=== PATIENT | female | born 1990 | race African-American/Black ===

== ENCOUNTER 2020-02-25 11:15 | Inpatient (IN) | payer OTHER ==
--- NOTE | 2020-02-25 12:05 | PN ---
Progress Note (short form) - Note Progress Note: 29yo @ 38w6d, here for NST,Had 10x10 accelerations at M , EDC-03/04/20 2 previous vaginal deliveries. on arrival BP- 141/87, 142/83 Preeclampsia blood work, BPP labs wnl UA-LE 2+ UC/S NITRITE NEGATIVE US- ANGELINA-10.3,CX-3.2 [id number] A/P- IUP@ 38w6d, Gestational hypertension Admit to labor and delivery Induction of labor, Informed and shared decision made
[2020-02-25 12:13] LABS: BASO % 1.1 % (0-2.0); EOS % 1.8 % (0-4.5); HEMATOCRIT 28.1 % (32.4-45.2); HEMOGLOBIN 9.6 GM/dL (10.7-15.3); LYMPH % 16.8 % (8-40); MEAN PLT VOLUME 9.2 fl (7.5-11.1); MONO % 11.5 % (3.8-10.2); NEUT % 68.8 % (42.8-82.8); PLATELET COUNT 243 K/MM3 (134-434); RDW 13.7 % (11.6-15.6); WHITE BLOOD COUNT 9.3 K/mm3 (4.0-10.0)
[2020-02-25 12:23] LABS: EPI CELLS >36 /uL (0-25.1); HYALINE CASTS 3 /uL (0-3.1); PH,URINE 6.5 (5.0-8.0); URINE APPEARANCE CLOUDY; URINE BACTERIA 1924 /uL (0-1359); URINE BILIRUBIN NEGATIVE (NEGATIVE); URINE COLOR YELLOW; URINE GLUCOSE (UA) NEGATIVE (NEGATIVE); URINE KETONE NEGATIVE (NEGATIVE); URINE LEUK ESTERASE 2+ (NEGATIVE); URINE NITRITE NEGATIVE (NEGATIVE); URINE PROTEIN NEGATIVE (NEGATIVE); URINE RBC 21 /uL (0-23.9); URINE WBC 134 /uL (0-25.8)
[2020-02-25 12:41] LABS: ALBUMIN 2.6 g/dl (3.4-5.0); BILIRUBIN,TOTAL 0.3 mg/dL (0.2-1); CREATININE 0.6 mg/dL (0.55-1.3); POTASSIUM 3.5 mmol/L (3.5-5.1); TOT PROT 6.1 g/dl (6.4-8.2); URIC ACID 6.4 mg/dL (2.6-7.2)
[2020-02-25 14:04] VITALS: BMI 31.8
--- NOTE | 2020-02-25 14:11 | HP ---
Past Medical History - Primary Care Physician PCP:: Vikki Stiles - Admission History Source: Patient - Past Medical History ...: 2 ...Para: 1 ...Term: 1 ...: 0 ...Spon : 0 ...Induced : 0 ...Living Children: 1 ...Multiple Gestation: 0 ... Weeks Gestation by Dates: 38.6 ...EDC by Dates: 03/04/20 - Past Surgical History Past Surgical History: Yes: None Hx Myomectomy: No Hx Transabdominal Cerclage: No - Smoking History Smoking history: Never smoked Have you smoked in the past 12 months: No - Alcohol/Substance Use Hx Alcohol Use: No Home Medications - Allergies Allergies/Adverse Reactions: Allergies Allergy/AdvReac Type Severity Reaction Status Date / Time No Known Allergies Allergy Verified 02/25/20 12:05 - Home Medications Home Medications: Ambulatory Orders Vitamins (Sjr) - 1 tab PO DAILY 02/25/20 Review of Systems - Review of Systems Constitutional: reports: No Symptoms Cardiovascular: reports: No Symptoms Respiratory: reports: No Symptoms Gastrointestinal: reports: No Symptoms Genitourinary: reports: No Symptoms Breasts: reports: No Symptoms Reported Physical Exam - Maternity Vital Signs: Vital Signs Temperature 98.2 F 02/25/20 12:45 Pulse Rate 82 02/25/20 12:45 Respiratory Rate 18 02/25/20 12:45 Blood Pressure 133/81 02/25/20 12:45 O2 Sat by Pulse Oximetry (%) Constitutional: Yes: Well Nourished Cardiovascular: Yes: WNL Lungs: Clear to auscultation - Abdominal Exam/OB Fundal Height: 38 Number of Fetuses: Single Presentation: Vertex Contractions: No Monitor Mode: External Heart Rate (range): 130 Category: I Accelerations: Uniform Decelerations: None - Vaginal Exam/OB Vaginal Bleeding: No Amniotic Membrane Status: Intact Presentation: Vertex/Position Station: -3 - Physical Exam Edema: No - Labs Lab Results: CBC, BMP 02/25/20 11:00 02/25/20 11:45 Hemorrhage Risk Assessment - Risk Factors Medium Risk Factors: Yes: None High Risk Factors: Yes: None Risk Score: 1 Risk Level: Medium Risk Assessment/Plan 29yo @ 38w6d, Gestational hypertension, Induction of labor Admit to labor and delivery Informed consent Labs IVLR Pain management Anticipate vaginal delivery Cervidil placed NPO when active labor, regular diet now Ampicillin for GBS when contractions regular
[2020-02-25 14:12] LABS: INR 0.97 (0.83-1.09); PROTHROMBIN TIME (PATIENT) 11.5 SEC (9.7-13.0)
[2020-02-25] MEDS ORDERED: DINOPROSTONE 10 MG VAGINAL SUPPOSITORY VG ONE (14:20)
[2020-02-25] MEDS ORDERED: AMPICILLIN - 2 GM in SODIUM CHLORIDE 100 ML IVPB ONE (14:24)
[2020-02-25] MEDS ORDERED: LACTATED RINGERS SOLUTION 1,000 ML/1,000 ML INFUS.BAG IV SCH (14:30)
[2020-02-25] MEDS ORDERED: LACTATED RINGERS SOLUTION 1,000 ML/500 ML INFUS.BAG IV SCH (14:30)
[2020-02-25] MEDS: LACTATED RINGERS SOLUTION 1,000 ML/1,000 ML INFUS.BAG IV SCH (16:00)
--- NOTE | 2020-02-25 23:02 | PD.OB.PROG ---
Past Medical History - Primary Care Physician PCP:: Radha Perdomo Documenting Provider Type: Laborist - Admission Chief Complaint: For induction. Attending rdequested cervidil change History of Present Illness: Uneventful gestation. History Source: Caregiver Limitations to Obtaining History: No Limitations - Nursing Documentation Maternal Triage Index: Maternal Triage Index ( Priority 5, Requesting MFTI) Maternal Triage Index ( Priority 5, Requesting MFTI) Maternal Triage Index ( Priority 5, Requesting MFTI) Hemorrhage Risk Assessment: Risk Level Low Risk High Level Risk Factors for None Hemorrhage Medium Level Risk Factors for None of the above Hemorrhage Low Level Risk Factors for No previous uterine incis,[place] Pregnaancy, Hemorrhage Four (4) or less previous,No known bleeding,No history of PPH Nursing Documentation Reviewed: Yes - Past Medical History 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 Weeks Gestation by Dates: 38.6 ...EDC by Dates: 03/04/20 Heme/Onc: Denies/None Infectious Disease: Denies/None Psych: Denies/None Musculoskeletal: Denies/None Rheumatology: Denies/None ENT: Denies/None Endocrine: Denies/None Dermatology: Denies/None - Past Surgical History Past Surgical History: Yes: None - Smoking History Smoking history: Never smoked Have you smoked in the past 12 months: No - Alcohol/Substance Use Hx Alcohol Use: No Review of Systems - Review of Systems Constitutional: reports: No Symptoms Eyes: reports: No Symptoms HENT: reports: No Symptoms Neck: reports: No Symptoms Cardiovascular: reports: No Symptoms Respiratory: reports: No Symptoms Gastrointestinal: reports: No Symptoms Genitourinary: reports: No Symptoms Breasts: reports: No Symptoms Reported Musculoskeletal: reports: No Symptoms Integumentary: reports: No Symptoms Neurological: reports: No Symptoms Endocrine: reports: No Symptoms Hematology/Lymphatic: reports: No Symptoms Psychiatric: reports: No Symptoms Physical Exam - Obstetrical Vital Signs: Vital Signs Temperature 98.1 F 02/25/20 18:00 Pulse Rate 69 02/25/20 21:00 Respiratory Rate 18 02/25/20 21:00 Blood Pressure 125/71 02/25/20 21:00 O2 Sat by Pulse Oximetry (%) Constitutional: Yes: Well Nourished, No Distress, Calm Eyes: Yes: WNL, Conjunctiva Clear, EOM Intact HENT: Yes: WNL, Atraumatic, Normocephalic Neck: Yes: WNL, Supple, Trachea Midline Cardiovascular: Yes: WNL, Regular Rate and Rhythm Lungs: Clear to auscultation Breast(s): Yes: WNL - Abdominal Exam/OB Fundal Height: 38 Number of Fetuses: Single Presentation: Vertex Contractions: No Monitor Mode: External Heart Rate (range): 135 Heart Rate Location: [facility] Category: I Accelerations: Uniform - Vaginal Exam/OB Vaginal Exam Deferred: No Vaginal Bleeding: No Speculum Exam: No Dilatation (cm): 2 Effacement (%): 50 Amniotic Membrane Status: Intact Presentation: Vertex/Position Station: -1 - Physical Exam Musculoskeletal: Yes: WNL Extremities: Yes: WNL Integumentary: Yes: WNL ...Motor Strength: WNL Psychiatric: Yes: WNL - Labs Lab Results: CBC, BMP 02/25/20 11:00 02/25/20 11:45 Problem List - Problems (1) Term Code(s): Z34.90 - ENCNTR FOR SUPRVSN OF NORMAL , UNSP, UNSP TRIMESTER (2) Elective induction of labor planned Code(s): VBW9249 - Assessment/Plan Cervidil exchanged. Favorable cx. Anticipating vaginal delivery.
[2020-02-26] MEDS ORDERED: DINOPROSTONE 10 MG VAGINAL SUPPOSITORY VG ONE (00:45)
[2020-02-26] MEDS ORDERED: IBUPROFEN 600 MG TABLET (FP) PO PRN (04:29)
[2020-02-26] MEDS ORDERED: METHYLERGONOVINE MALEATE 0.2 MG/1 ML AMP IM PRN ×2 (04:29→12:51)
[2020-02-26] MEDS ORDERED: OXYTOCIN 20 UNITS in 0.9% NS 1,000 ML IV SCH (04:30)
[2020-02-26] MEDS ORDERED: ACETAMINOPHEN 1000 MG/100 ML VIAL (NON FORMULARY) IVPB PRN (04:33)
[2020-02-26] MEDS ORDERED: AMPICILLIN SODIUM 2 GM VIAL ONE (04:48)
[2020-02-26] MEDS ORDERED: SODIUM CHLORIDE 100 ML IVPB ONE (04:49)
[2020-02-26] MEDS ORDERED: BUTORPHANOL TARTRATE 2 MG/ML VIAL ONE (08:06)
[2020-02-26] MEDS ORDERED: PROMETHAZINE HCL 25 MG/1 ML VIAL ONE (08:06)
[2020-02-26] MEDS ORDERED: AMPICILLIN SODIUM 1 GM VIAL ONE (08:55)
[2020-02-26] MEDS ORDERED: AMPICILLIN - 1 GM in SODIUM CHLORIDE 100 ML IVPB SCH (09:00)
[2020-02-26] MEDS ORDERED: BUTORPHANOL TARTRATE 1 MG/ML VIAL IVPB ONE (09:15)
[2020-02-26] MEDS ORDERED: PROMETHAZINE HCL 25 MG/1 ML VIAL IVPB ONE (09:15)
--- NOTE | 2020-02-26 11:23 | PN ---
Progress Note (short form) - Note Progress Note: Patient in bed VSS. afebrile EFM - Baseline 125/min, moderate variability, accelerations, no decelerations Tocos - q 5 Pelvic - 7cm/100/-1/vertex Plan -Full term gestation in labor Anticipate vaginal delivery
[2020-02-26] MEDS ORDERED: OXYTOCIN 20 UNITS in 0.9% NS 20 UNIT/1,000 ML INFUS.BAG IV ONE ×2 (11:30→14:26)
[2020-02-26] MEDS ORDERED: LIDOCAINE HCL 1% PRESERVATIVE FREE - 30ML VIAL ONE (11:30)
[2020-02-26] MEDS: OXYTOCIN 20 UNITS in 0.9% NS 20 UNIT/1,000 ML INFUS.BAG IV SCH (12:20)
[2020-02-26] MEDS ORDERED: CARBOPROST TROMETHAMINE 250 MCG/ML AMPUL IM ONE ×2 (12:45→14:45)
[2020-02-26] MEDS ORDERED: WITCH HAZEL 50% (TUCKS) 40 PAD/JAR PAD TP PRN (12:51)
[2020-02-26] MEDS ORDERED: BENZOCAINE 20% 57 GM BOTTLE TP PRN (12:51)
[2020-02-26] MEDS ORDERED: BENZOCAINE 28 GM HEMORRHOIDAL OINTMENT TP PRN (12:51)
--- NOTE | 2020-02-26 13:02 | PN ---
Delivery - Delivery Vaginal Delivery: Spontaneous Type of Anesthesia: None Episiotomy/Laceration: None EBL (cc): 450 Delivery, Single - Stages of Labor Date of Delivery: 02/26/20 Date Placenta Delivered: 02/26/20 Placenta: Yes: Spontaneous, Normal Configuration - Condition of Position: Right, OA - 1 Minute Total Score: 7 5 Minutes Total Score: 8 - [place] Feeding Plan Initial Plan: Exclusive throughout hospitalization Benefits of Exclusively reinforced: Yes Remarks - Remarks Remarks: Compound presentation with right arm Nuchal cord X 1, divided on perineum
[2020-02-26] MEDS: FERROUS SO4 325 MG TABLET (FP) PO SCH ×2 (13:30→14:21)
[2020-02-26] MEDS: PRENATAL VITAMINS W/ FOLIC ACID TABLET (FP) PO SCH ×2 (13:30→14:21)
[2020-02-26] MEDS ORDERED: LABETALOL HCL 200 MG TABLET (FP) ONE ×2 (14:08→21:34)
[2020-02-26] MEDS ORDERED: LABETALOL HCL 200 MG TABLET (FP) PO ONE (14:45)
[2020-02-26 17:06] LABS: BASO % 0.7 % (0-2.0); EOS % 0.3 % (0-4.5); HEMATOCRIT 32.9 % (32.4-45.2); HEMOGLOBIN 10.5 GM/dL (10.7-15.3); LYMPH % 6.1 % (8-40); MCH 27.9 pg (25.7-33.7); MCHC 31.9 g/dl (32.0-36.0); MEAN CELL VOLUME 87.6 fl (80-96); MEAN PLT VOLUME 8.9 fl (7.5-11.1); MONO % 8.1 % (3.8-10.2); NEUT % 84.8 % (42.8-82.8); PLATELET COUNT 268 K/MM3 (134-434); RBC 3.75 M/mm3 (3.60-5.2); RDW 13.5 % (11.6-15.6); RETICULOCYTES 2.12 % (0.5-1.5); WHITE BLOOD COUNT 15.2 K/mm3 (4.0-10.0)
[2020-02-26 17:57] LABS: RETICULOCYTES 2.1 % (0.5-1.5)
[2020-02-26 17:58] LABS: BASO % 0.7 % (0-2.0); EOS % 0.3 % (0-4.5); HEMATOCRIT 32.2 % (32.4-45.2); HEMOGLOBIN 10.4 GM/dL (10.7-15.3); LYMPH % 5.7 % (8-40); MCH 28.1 pg (25.7-33.7); MCHC 32.2 g/dl (32.0-36.0); MEAN CELL VOLUME 87.3 fl (80-96); MEAN PLT VOLUME 8.6 fl (7.5-11.1); MONO % 9.4 % (3.8-10.2); NEUT % 83.9 % (42.8-82.8); PLATELET COUNT 265 K/MM3 (134-434); RBC 3.69 M/mm3 (3.60-5.2); RDW 13.9 % (11.6-15.6); WHITE BLOOD COUNT 16.8 K/mm3 (4.0-10.0)
[2020-02-26 18:24] LABS: ALBUMIN 2.9 g/dl (3.4-5.0); BILIRUBIN,TOTAL 0.4 mg/dL (0.2-1); BLOOD UREA NITROGEN 5.2 mg/dL (7-18); CALCIUM 9.7 mg/dL (8.5-10.1); CREATININE 0.5 mg/dL (0.55-1.3); TOT PROT 6.3 g/dl (6.4-8.2); URIC ACID 5.7 mg/dL (2.6-7.2)
[2020-02-26 19:56] LABS: EPI CELLS 5 /uL (0-25.1); HYALINE CASTS 0 /uL (0-3.1); PH,URINE 6.5 (5.0-8.0); URINE APPEARANCE CLEAR; URINE BACTERIA 43 /uL (0-1359); URINE BILIRUBIN NEGATIVE (NEGATIVE); URINE COLOR YELLOW; URINE GLUCOSE (UA) NEGATIVE (NEGATIVE); URINE KETONE TRACE (NEGATIVE); URINE LEUK ESTERASE NEGATIVE (NEGATIVE); URINE NITRITE NEGATIVE (NEGATIVE); URINE PROTEIN NEGATIVE (NEGATIVE); URINE RBC 918 /uL (0-23.9); URINE UROBILINOGEN 0.2 mg/dL (0.2-1.0); URINE WBC 7 /uL (0-25.8)
[2020-02-26] MEDS: LABETALOL HCL 200 MG TABLET (FP) PO SCH (21:35)
[2020-02-26] MEDS ORDERED: ACETAMINOPHEN 325 MG TABLET (FP) ONE (21:38)
[2020-02-26] MEDS ORDERED: IBUPROFEN 600 MG TABLET (FP) PO ONE (21:38)
[2020-02-26] MEDS: IBUPROFEN 600 MG TABLET (FP) PO PRN (21:47)
[2020-02-26] MEDS: ACETAMINOPHEN 325 MG TABLET (FP) PO PRN (21:48)
[2020-02-27] MEDS: LACTATED RINGERS SOLUTION 1,000 ML/1,000 ML INFUS.BAG IV SCH ×2 (01:02→19:23)
[2020-02-27] MEDS: AMPICILLIN - 1 GM in SODIUM CHLORIDE 100 ML IVPB SCH ×2 (01:03→01:04)
[2020-02-27] MEDS: FERROUS SO4 325 MG TABLET (FP) PO SCH ×3 (01:03→22:00)
[2020-02-27 09:56] LABS: BASO % 1.4 % (0-2.0); EOS % 1.2 % (0-4.5); HEMATOCRIT 24.3 % (32.4-45.2); MCH 28.7 pg (25.7-33.7); MCHC 32.8 g/dl (32.0-36.0); MEAN CELL VOLUME 87.4 fl (80-96); MEAN PLT VOLUME 9.5 fl (7.5-11.1); MONO % 9.8 % (3.8-10.2); NEUT % 73.6 % (42.8-82.8); PLATELET COUNT 230 K/MM3 (134-434); RBC 2.78 M/mm3 (3.60-5.2); RDW 13.8 % (11.6-15.6); WHITE BLOOD COUNT 15.4 K/mm3 (4.0-10.0)
[2020-02-27] MEDS: LABETALOL HCL 200 MG TABLET (FP) PO SCH ×2 (09:57→22:01)
[2020-02-27] MEDS: PRENATAL VITAMINS W/ FOLIC ACID TABLET (FP) PO SCH (09:57)
[2020-02-27] MEDS: DOCUSATE SODIUM 100 MG CAPSULE (FP) PO SCH (09:57)
[2020-02-27 10:16] LABS: ALBUMIN 2.3 g/dl (3.4-5.0); BILIRUBIN,TOTAL 0.7 mg/dL (0.2-1); BLOOD UREA NITROGEN 7.3 mg/dL (7-18); CALCIUM 9.1 mg/dL (8.5-10.1); POTASSIUM 3.6 mmol/L (3.5-5.1); TOT PROT 5.6 g/dl (6.4-8.2)
[2020-02-27 10:17] LABS: CREATININE 0.7 mg/dL (0.55-1.3)
[2020-02-27] MEDS: OXYTOCIN 20 UNITS in 0.9% NS 20 UNIT/1,000 ML INFUS.BAG IV SCH (19:22)
[2020-02-27] MEDS ORDERED: SENNOSIDES/DOCUSATE COMBO (SENNA PLUS) TABLET (UD) PO PRN ×2 (22:00)
[2020-02-28] MEDS: ACETAMINOPHEN 325 MG TABLET (FP) PO PRN (02:49)
[2020-02-28] MEDS: IBUPROFEN 600 MG TABLET (FP) PO PRN (02:49)
[2020-02-28 09:17] VITALS: BP 114/63; PULSE 99; TEMP 98.3
[2020-02-28] MEDS: DOCUSATE SODIUM 100 MG CAPSULE (FP) PO SCH (09:51)
[2020-02-28] MEDS: FERROUS SO4 325 MG TABLET (FP) PO SCH (09:51)
[2020-02-28] MEDS: PRENATAL VITAMINS W/ FOLIC ACID TABLET (FP) PO SCH (09:51)
[2020-02-28] MEDS: LABETALOL HCL 200 MG TABLET (FP) PO SCH (09:51)
--- NOTE | 2020-02-28 10:51 | DS ---
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 without complaints. tolerating diet, ambulating well. no PÉREZ, SOB, CP vss - af abd: soft, nt, fundus firm vE: min lochia, intact a/p ppd 2 s/p doing well d/c to home f/u for PP check 4-6 weeks Discharge Summary Problems reviewed: Yes Reason For Visit: INDUCTION OF LABOR Current Active Problems Elective induction of labor planned (Acute) Term (Acute) Other Procedures: Hospital Course: pt. admitted for iol at term due to gest htn underwent uncomplicated PP course uneventful asymptomatic anemia pt. states taking PNV and FeSO4 at home and will continue Condition: Good - Instructions Diet, Activity, Other Instructions: regular diet activity as tolerated but avoid strenuous activity, heavy lifting or intercourse. pericare Referrals: Vikki Stiles MD [Staff Physician] - 1 Month Disposition: HOME - Home Medications Comprehensive Discharge Medication List: Ambulatory Orders Vitamins (Sjr) - 1 tab PO DAILY 02/25/20 Ibuprofen [Motrin -] 600 mg PO Q6H PRN #50 tablet 02/28/20
== END 2020-02-28 12:40 | disposition home or self-care (01) | DRG 807 ==
LOC: JDEL 11:15 → JLDR 12:45 → J3W 02-27 00:16
PROVIDERS: ADMIT Obstetrics & Gynecology; ATTEND Obstetrics & Gynecology
PROC: 3E0P7VZ Introduction of Hormone into Female Reproductive, Via Natural or Artificial Opening (ICD-10-PCS; 2020-02-25)
PROC: 10E0XZZ Delivery of Products of Conception, External Approach (ICD-10-PCS; principal; 2020-02-26)
DX: O13.3 Gestational [pregnancy-induced] hypertension without significant proteinuria, third trimester (principal); Z37.0 Single live birth; O32.6XX0 Maternal care for compound presentation, not applicable or unspecified; O69.81X0 Labor and delivery complicated by cord around neck, without compression, not applicable or unspecified; Z3A.38 38 weeks gestation of pregnancy; O90.81 Anemia of the puerperium; D64.89 Other specified anemias
CPT/HCPCS: 36415; 59025; 59409; 76819-TC; 80053; 81003; 82962; 82977; 83010; 84550; 85025; 85032; 85045; 85610; 85730; 86762; 86780; 86850; 86900; 86901; 87340; 87389; U0003